=== PATIENT | female | born 1965 | race Caucasian/White ===

== ENCOUNTER 2017-10-18 13:30 | Inpatient (IN) | payer MEDICARE, MEDICAID ==
[2017-10-22] MEDS ORDERED: FAMOTIDINE 20MG TABLET PO ONE (06:00)
[2017-10-22] MEDS ORDERED: VANCOMYCIN HCL 1,000 MG in DEXTROSE 5 % IN WATER 250 ML IVPB ONE ×2 (06:00)
[2017-10-22] MEDS ORDERED: ACETAMINOPHEN 1,000 MG/100 ML BTL IV ONE (06:00)
[2017-10-22] MEDS ORDERED: SCOPOLAMINE 1 PATCH TDSY TD ONE (06:00)
[2017-10-22] MEDS ORDERED: CELECOXIB 100 MG CAPSULE PO ONE (06:00)
[2017-10-22] MEDS ORDERED: ACETAMINOPHEN W/ CODEINE 300MG/60MG TABLET PO PRN ×2 (11:21)
[2017-10-22] MEDS ORDERED: KETOROLAC 30 MG/ML VIAL IVP PRN ×2 (11:21)
[2017-10-22] MEDS ORDERED: AL HYDROX/MAG HYDROX 30ML UD PO PRN (11:21)
[2017-10-22] MEDS ORDERED: NALOXONE 0.4 MG/1 ML VIAL IVP PRN (11:21)
[2017-10-22] MEDS ORDERED: TRAMADOL HCL 50 MG TABLET PO PRN ×2 (11:21)
[2017-10-22] MEDS ORDERED: ONDANSETRON HCL IV 4 MG/2 ML VIAL IVP PRN (11:21)
[2017-10-22] MEDS ORDERED: PROMETHAZINE HCL 12.5 MG in 0.9 % SODIUM CHLORIDE 100ML 50 ML IVPB PRN (11:21)
[2017-10-22] MEDS ORDERED: ACETAMINOPHEN 325 MG TAB PO PRN (11:21)
[2017-10-22] MEDS ORDERED: BISACODYL 10 MG SUPP RC PRN (11:21)
[2017-10-22] MEDS ORDERED: HYDROCODONE/APAP 5/325MG TABLET PO PRN ×2 (11:21)
[2017-10-22] MEDS ORDERED: MAGNESIUM HYDROXIDE 30 ML UDC PO PRN (11:21)
[2017-10-22] MEDS ORDERED: ACETAMINOPHEN W/ CODEINE 300MG/30MG TABLET PO PRN ×2 (11:21)
[2017-10-22] MEDS ORDERED: HYDROMORPHONE HCL 2 MG/ML VIAL IM PRN ×2 (11:21)
[2017-10-22] MEDS ORDERED: METOCLOPRAMIDE HCL 10 MG/2 ML VIAL IVP PRN (11:21)
[2017-10-22] MEDS ORDERED: ZOLPIDEM TARTRATE 5 MG TABLET PO PRN (11:21)
[2017-10-22 11:52] LABS: ABO GROUP A; ANTIBODY SCREEN NEGATIVE (NEGATIVE); RH TYPE POSITIVE
[2017-10-22] MEDS ORDERED: GLYCOPYRROLATE 0.2 MG/ML ML IV ONE (14:00)
[2017-10-22] MEDS ORDERED: HYDROMORPHONE PF 1MG/ML **AMPULE IV ONE (14:00)
[2017-10-22] MEDS ORDERED: BUPIVACAINE 0.5% W/EPI MPF 30 ML VIAL IVP ONE (14:00)
[2017-10-22] MEDS ORDERED: PROPOFOL 10 MG/ML VIAL IV ONE (14:00)
[2017-10-22] MEDS ORDERED: ONDANSETRON HCL IV 4 MG/2 ML VIAL IVP ONE ×2 (14:00→20:00)
[2017-10-22] MEDS ORDERED: FENTANYL PF 100MCG/2ML VIAL IV ONE (14:00)
[2017-10-22] MEDS ORDERED: BUPIVACAINE LIPOSOME 266MG/20ML VIAL IV ONE (14:00)
[2017-10-22] MEDS ORDERED: ALPRAZOLAM 1 MG TAB PO ONE (14:00)
[2017-10-22] MEDS ORDERED: VANCOMYCIN HCL 1 GM VIAL IVPB ONE ×2 (14:00)
[2017-10-22] MEDS ORDERED: MIDAZOLAM HCL 2MG/2ML VIAL IV ONE (14:00)
[2017-10-22] MEDS ORDERED: TRANEXAMIC ACID 1,000 MG/10 ML ML IV ONE ×2 (14:00)
[2017-10-22] MEDS ORDERED: NITROSTAT 0.4 MG SL PRN (15:52)
[2017-10-22] MEDS: DEXTROSE 5 % AND 0.9 % NACL 1,000 ML IV PRN (16:43)
[2017-10-22] MEDS: HYDROCODONE/APAP 7.5/325MG TABLET PO PRN ×3 (17:49→22:15)
[2017-10-22] MEDS: DIPHENHYDRAMINE HCL 25 MG CAPSULE PO PRN (18:16)
[2017-10-22] MEDS ORDERED: CITALOPRAM 20 MG TABLET PO SCH (20:00)
[2017-10-22] MEDS ORDERED: PANTOPRAZOLE SODIUM 40 MG TABLET PO SCH (20:00)
[2017-10-22] MEDS ORDERED: ATENOLOL 25 MG TABLET PO SCH (20:00)
[2017-10-22] MEDS: DOCUSATE SODIUM 100 MG CAPSULE PO SCH (21:06)
[2017-10-22] MEDS: FERROUS SULFATE 325 MG TAB PO SCH (21:11)
[2017-10-23] MEDS: VANCOMYCIN HCL 1,000 MG in DEXTROSE 5 % IN WATER 250 ML IVPB SCH ×4 (00:02→12:10)
[2017-10-23] MEDS: DIPHENHYDRAMINE HCL 25 MG CAPSULE PO PRN (00:02)
[2017-10-23] MEDS: DEXTROSE 5 % AND 0.9 % NACL 1,000 ML IV PRN (01:38)
[2017-10-23] MEDS: HYDROCODONE/APAP 7.5/325MG TABLET PO PRN ×4 (03:13→16:44)
[2017-10-23 06:51] LABS: HEMATOCRIT 32.9 % (35.0-47.0); HEMOGLOBIN 10.3 gm/dl (11.6-16.0)
--- NOTE | 2017-10-23 07:05 | Operative Note ---
DATE OF SURGERY: 10/22/2017. PREOPERATIVE DIAGNOSIS: ENDSTAGE RIGHT KNEE ARTHROSIS. POSTOPERATIVE DIAGNOSIS: ENDSTAGE RIGHT KNEE ARTHROSIS. OPERATION: Right total knee arthroplasty. SURGEON: Simon Marroquin M.D. ANESTHESIA: Spinal. COMPLICATIONS: None. ESTIMATED BLOOD LOSS: Minimal. TOURNIQUET TIME: About 70 minutes. OPERATIVE FINDINGS: [id number] valgus arthrosis. COMPONENTS PLACED: [employer] Oxinium total knee arthroplasty system, size 5 femoral component, a size 5 tibial baseplate, a 9.0 mm thick tibial poly insert, 35 mm cemented patellar component. INDICATIONS: This is a 51-year-old female who has had endstage valgus knee arthrosis for several years. She has failed nonoperative treatment and scheduled for a total knee arthroplasty. I explained to her all risks and benefits of surgery in detail for the diagnosis and procedures including but not limited to infection, nerve injury, vessel injury, persistent pain, stiffness, numbness and tingling in her knee, periprosthetic fracture, need for resection arthroplasty should the components become infected or loosened, blood clot, and the need for further procedures. All of her questions were answered. The treatment and course were outlined and she agreed to proceed. PROCEDURE: The patient brought to the operating room, was placed in the supine position, and was prepared for surgery. Spinal anesthesia was induced. Her right lower extremity and knee were prepped and draped in sterile fashion. The right knee was prepped again with ChloraPrep and draped. Intraoperative time out was performed. Next, the knee was infiltrated with 0.5% Marcaine with epinephrine. The leg was exsanguinated with Esmarch and the knee was flexed. The tourniquet was inflated to 250 mm Hg pressure. Next, the skin and subcutaneous tissues were dissected down. Incised the capsule medially around the medial border of the patella to the tibial tubercle. Incised the vastus medialis in line with its fibers in a mid vastus approach. I elevated the periosteum medially and the capsule. I partially resected the retropatellar fat. She had [id number] valgus arthrosis. She also had significant arthrosis in the patellofemoral compartment of the patella. Next a drill hole was made in the intracondylar notch. I inserted an intramedullary guide iván and the 60-degree cutting block. I cut the distal femoral condyle in the +2.0 mm position. Next I placed the sizing jig on the distal femoral condyle and sized it to be right on size 5. Through the previously-placed pin holes I placed the size 5 cutting jig. We dialed in the anterior cut so it would come out flush without notching. We cut the anterior cut and it was a good cut. I pinned the cutting jib and cut the remaining chamfer cuts in the usual fashion. Next I placed a size 5 femoral component, centered it, and pinned it. I removed osteophytes from the posterior femoral condyles. I inserted the femoral resection collet. I then reamed out with a box osteotome the cruciate bone block. Attention was turned to the tibia. Placed seated the spikes in the intertubercular groove two fingerbreadths distal to the anterior tibial cortex. Referenced for a 7.0 mm cut off the higher medial plateau. We pinned the cutting jig provisionally with two anterior-posterior pins. We then rechecked alignment of the cutting jig using a drop iván, centering it on the tibial anatomic access. We then cross pinned it to complete its fixation and then cut the tibia. Next, we removed osteophytes off the posterior femoral condyles and checked the flexion and extension gaps. There were symmetric flexion and extension gaps with the 9.0 mm tibial poly insert. We had 2.0 to 3.0 mm varus and valgus laxity in flexion and extension. We had overall alignment in flexion and extension with anatomic valgus orientation with alignment rods centered on the hip joint and ankle joint. Next we took the knee in flexion and sized the tibial baseplate to be size 5. We replaced all trial components and set the rotation on the tibial base plate again in extension using the alignment iván centered on the hip joint and ankle joint. Marked electrocautery uriostegui on the anterior tibial cortex off the laser uriostegui on the tibial baseplate. Next attention was turned to the patella. I measured the patella to be 22 mm. I set the cutting jig at 13 mm to allow for a 9.0 mm thick poly insert. Cut the patella and chamfered off the lateral patellar facet. I remeasured and it was right on 13. I sized it to be 35 mm, drilled the peg holes, and medialized it as much as possible. I then mixed cement. Trial range of motion revealed the patella tracked nicely hands free. We had full extension and flexion to 130 to 140 degrees. Again there were symmetric flexion and extension gaps. Next I took the knee in flexion and placed a bone plug in the femoral canal hole. I set rotation of the tibial baseplate off the previously placed electrocautery uriostegui. I pinned it in place and reamed out and keel punched the keel hole. Next I changed gloves and brought in a clean sheet. I copiously irrigated bony surfaces with pulse lavage and antibiotic solution. I precoated both surfaces and then impacted down down the tibial component first, removing excess cement. I then impacted down the femoral component removing excess cement. I placed the trial poly liner and held the knee in extension. I clamped down the patellar component until the cement hardened. Once the cement hardened, I took the knee in flexion. I distracted the knee with a bone hook and sponge. I irrigated copiously removing any excess cement fragments. Next we injected the deep capsule and periosteum medially and laterally, working from deep to superficial, with several sticks of our joint cocktail with 0.5% Marcaine with epinephrine, tranexamic acid, and Exparel mixture. Next, we impacted down the real tibial poly insert and verified it was interlocked medially and laterally. I found our range of motion was still the same. We then irrigated copiously and closed knee in flexion, the capsule and vastus medialis with running #2 Quill. I irrigated again and closed the skin deep with 2-0 Vicryl. I then placed a JUAN R dressing on top. Rajesh wrap was applied. The patient tolerated the procedure well. No intraoperative complications. Sponge, needle, and blade counts correct. Recovery room stable, neurovascularly intact. She will be discharged to the floor and will be discharged home tomorrow. She will follow up in two weeks. cc: Anton Goetz M.D. JOB NUMBER: [id number] MTDD
[2017-10-23] MEDS: OXYCODONE HCL 5 MG TABLET PO PRN ×2 (08:37→14:20)
--- NOTE | 2017-10-23 09:34 | Rehab Evaluation ---
Patient Information - Patient Information Diagnosis: R knee DJD Ordered Treatment: PT Evaluate and Treat Status: Initial Evaluation Surgery: Yes (R TKA) Date of Surgery: 10/22/17 Past Medical/Surgical Hx: PAST MEDICAL/SURGICAL HISTORY Surgery to Affected Area? Yes Recent Surgery? Past Surgical History angioplasty X1; Multiple cardiac cath between [id number] coronary stents x8, last [address] June 21, 2017 hyst laryngoscopy; Right knee scopes X4 c scope right knee scope PMH - Respiratory Hx Respiratory Disorders Yes Hx Chronic Obstructive Yes: Less than 1ppd X28 yrs Pulmonary Disease (COPD) Hx of URI Yes: Influenza Type A 07/05 Hx of Productive Cough smokers cough, prod in AM Comment: Growth on bilat vocal cords PMH - Cardiovascular Hx Cardiovascular Disorders Yes Hx Cardiac Catheterization Yes: Multiple [id number] Hx Chest Pain Yes: No CP since last stents place in Jun 2017 Hx Edema Yes: Occ ankle swelling Hx Heart Attack Yes: "minor" in 2012 Hx Hypertension Yes: Controlled with Atenolol Hx Coronary Artery Disease Yes Hx Coronary Stent Yes: X8, last 2 in 06/21/17 Hx Percutaneous Transluminal Yes Coronary Angioplasty (PTCA) PMH - Neuro Hx Neurological Disorders No PMH - GI Hx Gastrointestinal Disorders Yes Hx Gastroesophageal Reflux Yes: controlled on Prilosec PMH - Hx Genitourinary Disorders No Hx Age of Menopause 33 Patient No Comment: Hyst age 33, dysmenorrhea PMH - Endocrine Hx Endocrine Disorders No PMH - Musculoskeletal Hx Musculoskeletal Disorders Yes Hx Arthritis Yes: Right hip, right wrist, right foot, right knee Hx Osteoporosis Yes Comment: Right knee pain PMH - Psych Hx Psychiatric Problems Yes Hx Anxiety Yes: no meds Hx Depression Yes PMH - Hematology/Oncology Hx Hematology/Oncology No Disorders Premorbid Status: Detail (The patient was independent with all mobility prior to surgery.) Social History: Detail (The patient lives with a significant other in an apartment which is on the second floor. The patient has 16 steps to climb to the second floor with a railing on the L side. The patient 's bathroom is equipped with a tub (no shower and a standard height toilet. No grab bars are present. The patient was vended a walker with wheels.) Precautions: Couch, Fall, Other (WBAT on the right.) - Time With Patient Total Time Spent With Patient (Min): 30 Treatment Procedures: Detail (Initial evaluation and gait training.) Subjective Information - Subjective Information Per Patient (The patient had complaints of R knee pain and lightheadedness.) Objective Data - Pain Pain Present: Yes Pain Intensity: 8 Pain Scale Used: Numeric (1 - 10) - Mental Status Patient Orientation: Oriented x3 - Visual Perception Appears within normal limits for therapeutic activities - ROM Not within normal limits (The patient's R knee AROM is limited s/p surgery. All other LE AROM is WNL.) - Strength/Tone Not within normal limits (The patient's L LE strength is generally 4+ to 5/5. The patient's R LE strength was not tested secondary to s/p surgery. The patient was able to functionally lift R LE into bed. The patient was unable to isolate her R quadricep group.) - Bed Mobility Independent (The patient was independent with sit to supine and scooting up in bed.) - Transfers Independent (The patient was independent with sit to and from sit.) - Balance Balance Sitting: Good Balance Standing: Good - Sensation Intact - Gait Detail (The patient ambulated with 2 wheeled walker WBAT on the R LE with supervision for safety and verbal cues to place R LE on the floor fully for heel to toe gait pattern , a distance of 100 feet x 1.) - Special Tests Yes (Initially the patient's O 2 sat level was 90 after ambulating and returning to bed O2 sat was 85. The patient's level returned to 90 after deep breathing for 30 seconds.) Therapy Assessment - Therapy Assessment Detail (The patient was independent with bed mobility, transfers and ambulation. The patient exhibits R quad weakness and decreased R knee extension.) Patient Education - Patient Education Teaching Topic: Exercise/Activity (The patient's HEP was reviewed which included : SLR, hamstring sets, gluteal sets, ankle pumps, quad sets and heel slides. The patient had difficulty isolating quad group and was able to acheive one SLR which increased her pain.) Response: Return Demonstration Teaching Method: Demonstration Teaching Recipient: Patient Barriers To Learning: Age Related Problem List - Problem List Physical Therapy Problem List: Detail (1) Decreased R knee AROM and R LE strength as to be expected following surgery. 2) Non ambulatory on stairs) Goals - Goals Physical Therapy Goals: 1) The patient will be independent with HEP. 2) The patient will ambulate on a flight of stairs with supervision for safety. 3) The patient will be independent with ambulation with assistive device household distances WBAT on the R LE. Prognosis - Prognosis Good Plan - Plan Physical Therapy Plan: PT 1-2 times a day until all inpatient PT goals have been met for gait training on levels and stairs and instruction in a HEP.
[2017-10-23] MEDS ORDERED: CELECOXIB 100 MG CAPSULE PO SCH (10:00)
[2017-10-23] MEDS ORDERED: RIVAROXABAN 10 MG TABLET PO SCH (10:00)
[2017-10-23] MEDS: DOCUSATE SODIUM 100 MG CAPSULE PO SCH (10:20)
[2017-10-23] MEDS: FERROUS SULFATE 325 MG TAB PO SCH (10:20)
--- NOTE | 2017-10-23 13:52 | Physical Therapy Tx Note ---
Physical Therapy Tx Note - Treatment Note Tolerated: Good Total Time Spent With Patient: 20 Physical Therapy Tx Note: Detail (The patient was in bed when PT arrived. The patient had complaints of R LE pain. The patient ambulated with wheeled walker WBAT on the R LE independently a distance of 120 feet x 1. The patient was able to place whole R foot down for improved weight bearing. The patient ambulated on 7 stairs with use of one railing (side stepping ) and 3 steps with one railing with supervision of 1 for safety. The patient 's quad set was reviewed. The patient continues to have difficulty isolating the quadricep group. The patient was fatigued and painful following treatment. The patient has met all inpatient goals.) Physical Therapy Problem List: Detail (1) Decreased R knee AROM and R LE strength as to be expected following surgery. 2) Non ambulatory on stairs) Physical Therapy Goals: GOALS MET: 1) The patient will be independent with HEP. 2) The patient will ambulate on a flight of stairs with supervision for safety. 3) The patient will be independent with ambulation with assistive device household distances WBAT on the R LE. Physical Therapy Plan: The patient has met all inpatient PT goals. The patient is to receive Home PT upon discharge from [facility].
--- NOTE | 2017-10-23 13:58 | Rehab Evaluation ---
Patient Information - Patient Information Diagnosis: R knee DJD Ordered Treatment: OT Evaluate and Treat Status: Initial Evaluation Surgery: Yes (R TKA) Date of Surgery: 10/22/17 Past Medical/Surgical Hx: PAST MEDICAL/SURGICAL HISTORY Surgery to Affected Area? Yes Recent Surgery? Past Surgical History angioplasty X1; Multiple cardiac cath between [id number] coronary stents x8, last [address] June 21, 2017 hyst laryngoscopy; Right knee scopes X4 c scope right knee scope PMH - Respiratory Hx Respiratory Disorders Yes Hx Chronic Obstructive Yes: Less than 1ppd X28 yrs Pulmonary Disease (COPD) Hx of URI Yes: Influenza Type A 07/05 Hx of Productive Cough smokers cough, prod in AM Comment: Growth on bilat vocal cords PMH - Cardiovascular Hx Cardiovascular Disorders Yes Hx Cardiac Catheterization Yes: Multiple [id number] Hx Chest Pain Yes: No CP since last stents place in Jun 2017 Hx Edema Yes: Occ ankle swelling Hx Heart Attack Yes: "minor" in 2012 Hx Hypertension Yes: Controlled with Atenolol Hx Coronary Artery Disease Yes Hx Coronary Stent Yes: X8, last 2 in 06/21/17 Hx Percutaneous Transluminal Yes Coronary Angioplasty (PTCA) PMH - Neuro Hx Neurological Disorders No PMH - GI Hx Gastrointestinal Disorders Yes Hx Gastroesophageal Reflux Yes: controlled on Prilosec PMH - Hx Genitourinary Disorders No Hx Age of Menopause 33 Patient No Comment: Hyst age 33, dysmenorrhea PMH - Endocrine Hx Endocrine Disorders No PMH - Musculoskeletal Hx Musculoskeletal Disorders Yes Hx Arthritis Yes: Right hip, right wrist, right foot, right knee Hx Osteoporosis Yes Comment: Right knee pain PMH - Psych Hx Psychiatric Problems Yes Hx Anxiety Yes: no meds Hx Depression Yes PMH - Hematology/Oncology Hx Hematology/Oncology No Disorders Premorbid Status: Detail (The patient was independent with all mobility prior to surgery.) Social History: Detail (The patient lives with a significant other in an apartment which is on the second floor. The patient has 16 steps to climb to the second floor with a railing on the L side. The patient 's bathroom is equipped with a tub (no shower) and a standard height toilet. No grab bars are present. The patient was vended a walker with wheels. She will have assistance from her S.O. for ADLs/IADLs after discharge as needed.) Precautions: [place], Fall, Other (WBAT on the right.) - Time With Patient Total Time Spent With Patient (Min): 35 Treatment Procedures: Detail (OT eval low complexity) Subjective Information - Subjective Information Per Patient Objective Data - Pain Pain Present: Yes (Pt reports significant pain) - Mental Status Patient Orientation: Oriented x3 - Visual Perception Appears within normal limits for therapeutic activities - ROM Within normal limits (Mando UE AROM WNL) - Strength/Tone Within normal limits (Mando UE strength WNL) - Coordination Appears within normal limits for therapeutic activities - Bed Mobility Independent - Transfers Independent (Ind with sit to stand from EOB and chair height.) - Balance Balance Sitting: Good Balance Standing: Good - Sensation Intact - Gait Detail (Pt ambulating in hallway with 2 wheeled walker Indly.) - ADL's/IADL's Detail (Pt educated and demonstrated learning of modified LE dressing technique. She was Ind with doffing gown, briefs and slipper socks as well as donning PJ gown, underwear and tennis shoes. Educated pt on modified showering including adaptation to faucet, use of shower seat and washing hair in sink. Pt verbalizes understanding.) Therapy Assessment - Therapy Assessment Detail (Pt is safe and Ind with self cares.) Problem List - Problem List Physical Therapy Problem List: Detail (1) Decreased R knee AROM and R LE strength as to be expected following surgery. 2) Non ambulatory on stairs) Occupational Therapy Problem List: Detail (No current OT problems identified at this time.) Goals - Goals Physical Therapy Goals: 1) The patient will be independent with HEP. 2) The patient will ambulate on a flight of stairs with supervision for safety. 3) The patient will be independent with ambulation with assistive device household distances WBAT on the R LE. Occupational Therapy Goals: No current OT goals identified. Prognosis - Prognosis Good Plan - Plan Physical Therapy Plan: PT 1-2 times a day until all inpatient PT goals have been met for gait training on levels and stairs and instruction in a HEP. Occupational Therapy Plan: No further IP OT recommended at this time. Thank you for this referral.
== END 2017-10-23 18:50 | disposition home health service (06) | DRG 470 ==
LOC: MEDSURG 10-22 10:40
PROVIDERS: ADMIT Orthopaedic Surgery; ATTEND Orthopaedic Surgery
PROC: 0SRC069 Replacement of Right Knee Joint with Oxidized Zirconium on Polyethylene Synthetic Substitute, Cemented, Open Approach (ICD-10-PCS; principal; 2017-10-22 13:00)
DX: M17.11 Unilateral primary osteoarthritis, right knee (principal); I10 Essential (primary) hypertension; J44.9 Chronic obstructive pulmonary disease, unspecified; I25.10 Atherosclerotic heart disease of native coronary artery without angina pectoris; I25.2 Old myocardial infarction
CPT/HCPCS: 85014; 85018; 86850; 86900; 86901; 97116; J1170; J2405; J7042; J7060